=== PATIENT | female | born 1945 | race Caucasian/White ===

== ENCOUNTER → 2017-05-18 | Outpatient (CLI) | payer OTHER ==
[~2017-05-18] MED LIST: ASPI325; ASPI81EC PO; ATOR10; Celexa10 MG PO; ESCI5; FISH1000 PO; Flonase 0.05% N16 GM; GABA100 PO; GLIM4 PO; GLIP5ER; HYDACE5 PO; HYDACE5325 PO; IBUP800; LEVSOD100 PO; MELO7.5 PO; METF500; METF500 PO; METO25ER PO; NAPR500 PO; OXYACE5T PO; PARO20; PIOG15; PIOG15 PO; ROSI4 PO; RXHYDACE PO; TRAM50 PO; VITAMIN D350000 UNIT PO
[2017-05-18 13:26] LABS: Anion Gap 7 mmol/L (6-16); Blood Urea Nitrogen 35 mg/dL (8-24); Bun/Creatinine Ratio 29.7 (12.0-20.0); CHOL/HDL RATIO 5.6; CO2, Blood 28 mmol/L (21-32); Calcium, Blood 8.9 mg/dL (8.5-10.1); Chloride, Blood 104 mmol/L (98-108); Cholesterol 207 mg/dL (50-200); Creatinine, Blood 1.18 mg/dL (0.40-1.00); Glomerular Filtration Rate 48 (60-); Glucose, Blood 117 mg/dL (70-99); HDL Cholesterol 37 mg/dL (>39); LDL/HDL RATIO 3.4; Low Density Lipoprotein Chol 126 mg/dL (0-110); Potassium, Blood 4.5 mmol/L (3.5-5.5); Sodium, Blood 139 mmol/L (136-145); Triglycerides 218 mg/dL (30-160); Very Low Density Lipoprot Chol 43 mg/dL (6-32)
== END ==
LOC: LAB 12:53
PROVIDERS: Internal Medicine
DX: I10 Essential (primary) hypertension (principal); E11.9 Type 2 diabetes mellitus without complications; E03.9 Hypothyroidism, unspecified
CPT/HCPCS: 80048; 80061; 83036

== ENCOUNTER → 2017-11-22 | Outpatient (CLI) | payer OTHER ==
[2017-11-22 10:41] LABS: Alanine Aminotransfer (ALT/SGP 21 U/L (12-78); Albumin, Blood 3.2 g/dL (3.4-5.0); Albumin/Globulin Ratio 0.7 (0.8-1.8); Alk Phos 90 U/L (50-136); Anion Gap 8 mmol/L (6-16); Aspartate Aminotrans (AST/SGOT 19 U/L (12-37); Bilirubin, Total 0.3 mg/dL (0.1-1.0); Blood Urea Nitrogen 35 mg/dL (8-24); Bun/Creatinine Ratio 32.7 (12.0-20.0); CHOL/HDL RATIO 4.8; CO2, Blood 30 mmol/L (21-32); Calcium, Blood 9.5 mg/dL (8.5-10.1); Chloride, Blood 100 mmol/L (98-108); Cholesterol 205 mg/dL (50-200); Creatinine, Blood 1.07 mg/dL (0.40-1.00); Globulin, Blood 4.4 g/dL (2.2-4.0); Glomerular Filtration Rate 54 (60-); Glucose, Blood 122 mg/dL (70-99); HDL Cholesterol 43 mg/dL (>39); LDL/HDL RATIO 2.8; Low Density Lipoprotein Chol 122 mg/dL (0-110); Potassium, Blood 4.8 mmol/L (3.5-5.5); Sodium, Blood 138 mmol/L (136-145); Total Protein, Blood 7.6 g/dL (6.4-8.2); Triglycerides 198 mg/dL (30-160); Very Low Density Lipoprot Chol 40 mg/dL (6-32)
== END | disposition home or self-care (01) ==
LOC: LAB SHORT 09:52 → LAB 09:52
PROVIDERS: Internal Medicine
DX: E11.42 Type 2 diabetes mellitus with diabetic polyneuropathy (principal); I10 Essential (primary) hypertension; E03.9 Hypothyroidism, unspecified; F32.9 Major depressive disorder, single episode, unspecified; E66.01 Morbid (severe) obesity due to excess calories
CPT/HCPCS: 80053; 80061; 82043; 83036

== ENCOUNTER → 2019-06-05 | Outpatient (CLI) | payer OTHER | END | disposition home or self-care (01) | LOC: LAB 12:35 → LAB SHORT 12:35 | DX: E11.9 Type 2 diabetes mellitus without complications (principal) | CPT/HCPCS: 83036 ==

== ENCOUNTER 2019-11-13 17:21 | Emergency (ER) | payer OTHER ==
[~2019-11-13] VITALS: Ht 157.5 cm; Wt 104.3 kg
[2019-11-13] MEDS ORDERED: SITA25T2 PO (19:43)
== END 2019-11-13 20:38 | disposition home or self-care (01) ==
LOC: ER 17:21
DX: S50.02XA Contusion of left elbow, initial encounter (principal); M25.532 Pain in left wrist; Z88.0 Allergy status to penicillin; Z88.6 Allergy status to analgesic agent; Z79.84 Long term (current) use of oral hypoglycemic drugs; Z79.899 Other long term (current) drug therapy; W01.0XXA Fall on same level from slipping, tripping and stumbling without subsequent striking against object, initial encounter
CPT/HCPCS: 29125; 73090; 73130; 99283-25

== ENCOUNTER 2023-03-13 08:14 | Emergency (ER) | payer OTHER ==
[~2023-03-13] VITALS: Ht 152.4 cm; Wt 72.6 kg
[~2023-03-13 08:14] MED LIST changes: +CEFP200 PO; +SITA25T2 PO
[2023-03-13 11:07] VITALS: BP 170/95
== END 2023-03-13 11:07 | disposition home or self-care (01) ==
LOC: ER 08:14
DX: M79.601 Pain in right arm (principal); M79.602 Pain in left arm; E11.9 Type 2 diabetes mellitus without complications; I25.2 Old myocardial infarction; Z88.0 Allergy status to penicillin; Z88.6 Allergy status to analgesic agent; Z79.84 Long term (current) use of oral hypoglycemic drugs; Z79.899 Other long term (current) drug therapy
CPT/HCPCS: 73080; 93971; 96372; 99284-25; A9270; J1885